=== PATIENT | female | born 1955 | race Caucasian/White ===

== ENCOUNTER → 2019-10-26 09:24 | Outpatient (CLI) | payer BC, SELFPAY ==
--- NOTE | ~2019-10-26 | DEXA_ITS ---
Bone Density Report Name: Caryn Samuel Age: 64 Sex: Female Ethnicity: White Date of : 1955 Indication: monitoring treatment; height loss; prior fracture; postmenopausal Referring Provider: VÍCTOR DRAKE Study: Bone densitometry was performed. Exam Date: October 26, 2019 Accession number: [id number] Bone Density: Region BMD T-score Z-score Classification AP Spine (L1-L4) 0.988 -0.5 1.0 Normal Femoral Neck (Left) 0.915 0.6 2.0 Normal Total Hip (Left) 1.050 0.9 2.0 Normal Femoral Neck (Right) 0.897 0.4 1.8 Normal Total Hip (Right) 1.079 1.1 2.2 Normal Total Hip Mean 1.065 1.0 2.1 Normal World Health Organization criteria for BMD impression classify patients as: Normal (T-score at or above -1.0), Osteopenia (T-score between -1.0 and -2.5), or Osteoporosis (T-score at or below -2.5). 10-year Fracture Risk: FRAX not reported because: All T-scores for Spine Total, Hip Total, Femoral Neck at or above -1.0 Prior hip or vertebral fracture Treated for osteoporosis Previous Exams: Region Exam Age BMD T-score BMD Change BMD Change Date g/cm2 vs Baseline vs Previous AP Spine(L1-L4) 10/26/2019 64 0.988 -0.5 -0.038* -0.056* 12/06/2012 57 1.044 0.0 0.018 0.052* 11/20/2010 55 0.992 -0.5 -0.035* -0.035* 09/18/2007 52 1.027 -0.2 Total Hip(Left) 10/26/2019 64 1.050 0.9 -0.026 -0.024 12/06/2012 57 1.074 1.1 -0.001 0.008 11/20/2010 55 1.066 1.0 -0.010 -0.010 09/18/2007 52 1.075 1.1 Total Hip(Right) 10/26/2019 64 1.079 1.1 -0.026 -0.015 12/06/2012 57 1.095 1.3 -0.010 0.013 11/20/2010 55 1.082 1.1 -0.023 -0.023 09/18/2007 52 1.105 1.3 *Denotes significance at 95% confidence level, LSC for AP Spine = 0.022 g/cm2, LSC for Total Hip = 0.027 g/cm2 Clinical Information Provided by Patient: Have had a previous hip or vertebral fracture Has had a low trauma fracture Is being treated for osteoporosis Has used the following medications: HRT (i.e. estrogen/hormone therapy), Vitamin D, Calcium Patient maximum height was 64 Menopause Age: 46 Drinks caffeinated beverages Onset of menses at age 14 Number of children 2 Impression: The patient has normal bone mass. The patient has risk factors, including: previous fracture. The BMD for the
== END ==
PROVIDERS: PCP Family Medicine; Visit Provider Family Medicine
DX: S52.615S Nondisplaced fracture of left ulna styloid process, sequela (principal); X58.XXXD Exposure to other specified factors, subsequent encounter; Z78.0 Asymptomatic menopausal state
CPT/HCPCS: 77080

== ENCOUNTER → 2019-12-14 11:25 | Outpatient (CLI) | payer BC, SELFPAY ==
--- NOTE | ~2019-12-14 | MM_ITS ---
EXAMINATION: MM screening [facility] BI w marvin HISTORY: Screening mammogram TECHNIQUE: Craniocaudal and mediolateral oblique 3-D tomosynthesis images were obtained and synthetic 2-D images were generated. CAD analysis was submitted and interpreted. COMPARISON: , 10/15/2017, 09/11/2016 bilateral digital screening mammogram examinations BREAST PARENCHYMAL COMPOSITION: The breasts are heterogeneously dense, which may obscure small masses . FINDINGS: There is no evidence of suspicious mass, calcification, or architectural distortion to sugg est malignancy in either breast. There has been no suspicious interval change. IMPRESSION: 1. No mammographic evidence of malignancy. 2. Recommend routine screening mammography in one year. BI-RADS Category 1: Negative Reviewed, dictated and finalized at location A.
== END ==
PROVIDERS: PCP Family Medicine; Visit Provider Obstetrics & Gynecology
DX: Z12.31 Encounter for screening mammogram for malignant neoplasm of breast (principal)
CPT/HCPCS: 77063; 77067

== ENCOUNTER → 2021-02-13 07:29 | Outpatient (CLI) | payer BC, SELFPAY ==
--- NOTE | ~2021-02-13 | MM_ITS ---
EXAMINATION: MM screening [facility] BI w marvin HISTORY: Screening mammogram TECHNIQUE: Craniocaudal and mediolateral oblique 3-D tomosynthesis images were obtained and synthetic 2-D images were generated. CAD analysis was submitted and interpreted. COMPARISON: 12/14/2019, , 10/15/2017 bilateral digital screening mammogram examinations BREAST PARENCHYMAL COMPOSITION: There are scattered areas of fibroglandular density. FINDINGS: There is no evidence of suspicious mass, calcification, or architectural distortion to sugg est malignancy in either breast. There has been no suspicious interval change. IMPRESSION: 1. No mammographic evidence of malignancy. 2. Recommend routine screening mammography in one year. BI-RADS Category 1: Negative Reviewed, dictated and finalized at location A.
== END ==
PROVIDERS: PCP Family Medicine; Visit Provider Obstetrics & Gynecology
DX: Z12.31 Encounter for screening mammogram for malignant neoplasm of breast (principal)
CPT/HCPCS: 77063; 77067

== ENCOUNTER → 2022-03-12 07:22 | Outpatient (CLI) | payer BC, SELFPAY ==
--- NOTE | ~2022-03-12 | MM_ITS ---
EXAMINATION: MM screening [facility] BI w marvin HISTORY: Screening mammogram TECHNIQUE: Craniocaudal and mediolateral oblique 3-D tomosynthesis images were obtained and synthetic 2-D images were generated. CAD analysis was submitted and interpreted. COMPARISON: 02/09/2021, 12/14/2019, bilateral screening mammogram examinations BREAST PARENCHYMAL COMPOSITION: There are scattered areas of fibroglandular density. FINDINGS: There is no evidence of suspicious mass, calcification, or architectural distortion to sugg est malignancy in either breast. There has been no suspicious interval change. IMPRESSION: 1. No mammographic evidence of malignancy. 2. Recommend routine screening mammography in one year. BI-RADS Category 1: Negative Reviewed, dictated and finalized at location A.
== END ==
PROVIDERS: PCP Family Medicine; Visit Provider Obstetrics & Gynecology
DX: Z12.31 Encounter for screening mammogram for malignant neoplasm of breast (principal)
CPT/HCPCS: 77063; 77067

== ENCOUNTER → 2022-06-19 14:19 | Outpatient (CLI) | payer BC, SELFPAY ==
--- NOTE | ~2022-06-19 | XR_ITS ---
XR chest 2V 06/19/2022 14:40 Indication: Cough Procedure: 2 view chest Comparison: No prior studies for comparison. Findings: Heart size normal. No focal air space disease, pulmonary edema, pleural effusion or suspect ed pneumothorax. No acute osseous abnormality. Impression: 1: No acute cardiopulmonary disease. Reviewed, dictated and finalized at location B. Impression: 1: No acute cardiopulmonary disease.
== END ==
PROVIDERS: PCP Family Medicine; Visit Provider Family Medicine
DX: R05.9 Cough, unspecified (principal)
CPT/HCPCS: 71046

== ENCOUNTER → 2023-03-15 07:15 | Outpatient (CLI) | payer MEDICARE, SELFPAY ==
--- NOTE | ~2023-03-15 | MM_ITS ---
EXAMINATION: MM screening [facility] BI w marvin HISTORY: Screening mammogram TECHNIQUE: Craniocaudal and mediolateral oblique 3-D tomosynthesis images were obtained and synthetic 2-D images were generated. CAD analysis was submitted and interpreted. COMPARISON: 03/12/2022, 02/09/2021, 12/14/2019 bilateral screening mammogram examinations BREAST PARENCHYMAL COMPOSITION: There are scattered areas of fibroglandular density. FINDINGS: There is a circumscribed approximately 4.7 x 6.5 mm opacity in the anterior aspect of the l ower outer right breast. There is a benign-appearing circumscribed 4 x 5.7 mm low-density opacity with halo sign in the lower inner quadrant of the right breast at mid depth (craniocaudal Tomosynthesis image 32/66; MLO Tomosynt hesis image 40/62). Otherwise there is no evidence of suspicious mass, calcification, or architectural distortion to sugg est malignancy in either breast. There has been no other suspicious interval change. IMPRESSION: 1. Right breast masses 2. Diagnostic right mammogram and right breast ultrasound examination are recommended BI-RADS Category 0: Incomplete: Needs additional imaging evaluation. Reviewed, dictated and finalized at location A. IMPRESSION: 1. Right breast masses 2. Diagnostic right mammogram and right breast ultrasound examination are recom mended BI-RADS Category 0: Incomplete: Needs additional imaging evaluation.
== END ==
PROVIDERS: PCP Student in an Organized Health Care Education/Training Program; Visit Provider Obstetrics & Gynecology
DX: Z12.31 Encounter for screening mammogram for malignant neoplasm of breast (principal); R92.8 Other abnormal and inconclusive findings on diagnostic imaging of breast
CPT/HCPCS: 77063; 77067

== ENCOUNTER → 2023-04-23 07:59 | Outpatient (CLI) | payer MEDICARE, SELFPAY ==
--- NOTE | ~2023-04-23 | MMUS_ITS ---
EXAMINATION: MM diagnostic jada RT w patrice, US breast RT complete HISTORY: Right breast masses reported on 03/15/2023 screening mammogram TECHNIQUE: Additional 3-D tomosynthesis images of the right breast were performed and synthetic 2-D i mages were generated. CAD analysis was submitted and interpreted. High resolution complete right jaylan st ultrasound examination including all 4 quadrants and subareolar area was performed. COMPARISON: 03/15/2023 bilateral screening mammogram FINDINGS: MAMMOGRAPHIC FINDINGS: There is a circumscribed approximately 5 x 6.3 pear-shaped mass in the right subareolar area (ML Patrice synthesis image 30/60; coned compression craniocaudal Tomosynthesis image 21/68). There is a low-density circumscribed 4.4 x 5.5 mm opacity in the inner mid right breast (ML Tomosynth esis image 45/60). No suspicious mass, architectural distortion, malignant calcification, skin thickening or retraction is evident. ULTRASOUND: Subareolar: Per-shaped circumscribed 4.3 x 6.4 mm sonolucency consistent with simple cyst. 3:00 3 cm from nipple: 4.1 x 4.3 x 5.2 mm circumscribed sonolucency consistent with simple cyst 4:00 3 cm from nipple: Angulated approximately 2 x 3 mm sonolucency, without shadowing, probably olamide gn. Six-month targeted right breast ultrasound follow-up at 4:00 3 cm from nipple is recommended IMPRESSION: 1. Probable benign sonolucent lesion of right breast at 4:00 3 cm from nipple; no other evidence of m alignancy 2. Targeted 6 month right breast ultrasound follow-up of 4:00 3 cm from nipple is recommended BI-RADS category 3, probably benign findings. Reviewed, dictated and finalized at location A. IMPRESSION: 1. Probable benign sonolucent lesion of right breast at 4:00 3 cm from nipple; no other evidence of malignancy 2. Targeted 6 month right breast ultrasound follow-up of 4:00 3 cm from nipple is recommended BI-RADS category 3, probably benign findings.
== END ==
PROVIDERS: PCP Student in an Organized Health Care Education/Training Program; Visit Provider Obstetrics & Gynecology
DX: N63.10 Unspecified lump in the right breast, unspecified quadrant (principal); R92.8 Other abnormal and inconclusive findings on diagnostic imaging of breast
CPT/HCPCS: 76641; 77061; 77065; G0279

== ENCOUNTER → 2023-10-24 07:49 | Outpatient (CLI) | payer MEDICARE, SELFPAY ==
--- NOTE | ~2023-10-24 | US_ITS ---
US breast RT limited 10/24/2023 08:07 Indication: Follow-up right breast mass Procedure: High-resolution Limited ultrasound of the right breast Comparison: 04/23/2023 Findings: At 4:00, 3 cm from the nipple there is a 5 mm, unchanged. No suspicious masses are identifi ed to suggest malignancy. Impression: 1: Simple cyst of the right breast 4:00, 3 cm from the nipple measuring 5 mm. No sonographic evidence for malignancy. Routine yearly screening mammogram and regular clinical breast examination are recommended. BI-RADS CATEGORY 2 - BENIGN FINDINGS Reviewed, dictated and finalized at location A. [employer] Impression: 1: Simple cyst of the right breast 4:00, 3 cm from the nipple measuring 5 mm. N o sonographic evidence for malignancy. Routine yearly screening mammogram and regular clinical breast examination are recommended. BI-RADS CATEGORY 2 - BENIGN FINDINGS
== END ==
PROVIDERS: PCP Student in an Organized Health Care Education/Training Program; Visit Provider Obstetrics & Gynecology
DX: N63.10 Unspecified lump in the right breast, unspecified quadrant (principal); R92.8 Other abnormal and inconclusive findings on diagnostic imaging of breast
CPT/HCPCS: 76642

== ENCOUNTER 2024-06-09 14:23 | Outpatient (CLI) | payer MEDICARE, SELFPAY ==
--- NOTE | ~2024-06-09 | MM_ITS ---
EXAMINATION: MM screening [facility] BI w marvin HISTORY: Screening mammogram TECHNIQUE: Craniocaudal and mediolateral oblique 3-D tomosynthesis images were obtained and synthetic 2-D images were generated. CAD analysis was submitted and interpreted. COMPARISON: 03/15/2023, 03/12/2022, 02/13/2021 BREAST PARENCHYMAL COMPOSITION:Not Dense. There are scattered areas of fibroglandular density. FINDINGS: No suspicious mass, calcification, or architectural distortion are identified in either dogu ast to suggest malignancy. There has been no suspicious interval change. IMPRESSION: No mammographic evidence of malignancy. Recommend routine screening mammography in one year. BI-RADS Category 1: Negative Reviewed, dictated and finalized at location .
== END 2024-06-09 14:24 | disposition home or self-care (01) ==
LOC: MICIMG 14:23
PROVIDERS: PCP Student in an Organized Health Care Education/Training Program; Visit Provider Obstetrics & Gynecology
DX: Z12.31 Encounter for screening mammogram for malignant neoplasm of breast (principal)
CPT/HCPCS: 77063; 77067

== ENCOUNTER 2025-08-24 11:27 | Outpatient (CLI) | payer MEDICARE, SELFPAY ==
--- NOTE | ~2025-08-24 | MM_ITS ---
EXAMINATION: MM screening [facility] BI w marvin HISTORY: Screening. TECHNIQUE: Craniocaudal and mediolateral oblique 3-D tomosynthesis images were obtained and synthetic 2-D images were generated. CAD analysis was submitted and interpreted. COMPARISON: 2023, 2022, and 2021. BREAST PARENCHYMAL COMPOSITION: Dense: The breasts are heterogeneously dense FINDINGS: There is architectural distortion at the lateral aspect of the left craniocaudal view. This is thought to lie at approximately 11 o'clock in the anterior to mid depth. There are no suspicious calcifications. There are no skin or nipple abnormalities identified. There is no adenopathy seen on the images submitted. IMPRESSION: Questionable appearance on the left for which additional mammographic and possibly sonographic imaging is recommended. BI-RADS 0 - Incomplete - needs additional imaging evaluation and/or prior mammograms for comparison. Reviewed, dictated and finalized at location B. TECH IMPRESSION: Questionable appearance on the left for which additional mammographic and possi lc sonographic imaging is recommended. BI-RADS 0 - Incomplete - needs additional imaging evaluation and/or prior mammo grams for comparison.
== END 2025-08-24 11:28 | disposition home or self-care (01) ==
PROVIDERS: PCP Student in an Organized Health Care Education/Training Program; Visit Provider Obstetrics & Gynecology
DX: Z12.31 Encounter for screening mammogram for malignant neoplasm of breast (principal); R92.8 Other abnormal and inconclusive findings on diagnostic imaging of breast
CPT/HCPCS: 77063; 77067